=== PATIENT | female | born 1955 | race Two or more races ===

== ENCOUNTER 2020-01-02 11:52 | Outpatient (CLI) | payer BC, SELFPAY ==
--- NOTE | ~2020-01-02 | XR_ITS ---
XR shoulder LT min 2V DATE: 01/02/2020 12:35 INDICATION: Generalized left shoulder pain. Hand and finger pain. TECHNIQUE: 4 views COMPARISON: None FINDINGS: There is moderate diffuse osteopenia. No fracture, dislocation, periosteal reaction or bone destruction or abnormal soft tissue calcificati on. Normal alignment at the acromioclavicular and glenohumeral joints. IMPRESSION: Osteopenia Reviewed, dictated and finalized at location A. IMPRESSION: Osteopenia
--- NOTE | ~2020-01-02 | XR_ITS ---
XR hand LT min 3V DATE: 01/02/2020 12:35 INDICATION: Hand pain, finger pain. No injury. TECHNIQUE: 3 views COMPARISON: None FINDINGS: There is diffuse osteopenia. There is osteoarthritic change mainly involving all interphalangeal joints. Osteopenia. No fracture, dislocation, periosteal reaction or bone destruction. 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
== END 2020-01-02 11:53 | disposition home or self-care (01) ==
LOC: ANHIMG 12:03
PROVIDERS: PCP Emergency Medicine; Visit Provider Emergency Medicine
DX: M19.042 Primary osteoarthritis, left hand (principal); M85.812 Other specified disorders of bone density and structure, left shoulder
CPT/HCPCS: 73030; 73130

== ENCOUNTER 2020-03-19 10:12 | Outpatient (CLI) | payer BC, SELFPAY ==
--- NOTE | ~2020-03-19 | XR_ITS ---
EXAMINATION: XR chest 2V EXAM DATE: 03/19/2020 10:31 INDICATION: Cough for 2 days. TECHNIQUE: Frontal and lateral projections of the chest obtained and reviewed. There is no prior eduarda dy for comparison. FINDINGS: There are cholecystectomy clips. The lungs are clear. There are no pleural effusions. T he cardiomediastinal silhouette is within normal limits. There is no pneumothorax suspected. The colby ivette and soft tissues are unremarkable. IMPRESSION: No acute cardiopulmonary findings. Reviewed, dictated and finalized at location B. 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
== END 2020-03-19 10:13 | disposition home or self-care (01) ==
LOC: ANHIMG 10:16
PROVIDERS: PCP Emergency Medicine; Visit Provider Emergency Medicine
DX: R05 Cough (principal)
CPT/HCPCS: 71046

== ENCOUNTER 2020-09-27 07:25 | Outpatient (CLI) | payer BC, SELFPAY ==
--- NOTE | 2020-10-14 15:30 | WPDHOMESLEEP ---
Sleep Study - Home Unattended Date of Study: 09/27/20 Ordering Provider: Belkys Forbes MD Interpreting Provider: Belkys Forbes MD Home Sleep Study Type: Apnea Link Air Height: 1.57 m Weight: 62.142 kg Body Mass Index: 25.2 Neck Circumference (inches): 14.25 [place]: 6 Reason for Sleep Study Loud snoring, excessive daytime fatigue. Sleep History Ad Razo is a 65 year old female with a history of loud snoring and increased daytime fatigue. She has an extremely dry mouth in the morning. She does not awaken from sleep feeling short of breath and she does not have heartburn, belching or coughing that wakes her at night. She constantly snores and frequently this is loud enough that others complain about it. She rarely has trouble sleep with a cold. She does not wake up gasping for breath at night. She does not have breathing problems observed by others at night and she does not sweat excessively night. She does not notice her heart pounding or beating irregularly night. She occasionally falls asleep during the day, never falls asleep involuntarily or while driving. She does not have loss of muscle tone with strong emotion. She does not have daytime difficulties due to excessive sleepiness. She does not feel paralyzed on waking or falling asleep. She does not have vivid dreamlike scenes upon awakening or falling asleep. She does not feel afraid to go to sleep. She does not have nightmares, does not have any dream recall. She does not have racing thoughts. She denies feelings of sadness or depression. She does not have anxiety. She denies having muscular tension. She does not notice parts of her body jerking and she does not kick at night. She does not have crawling or aching feelings in her legs and does not have any kind of leg pain at night. She does not have morning jaw pain. She denies grinding her teeth at night. She is not bothered by pain during the day and is not awakened by pain at night. She does not wake up feeling stiff in the morning with sore achy muscles. She does not wake up with pain in the neck or spine. Normal bedtime is 9:30 p.m. taking 1/2 hour fall asleep, typically waking twice at night to drink water and urinate. On average, she stays awake for 20 minutes when she wakes at night. She wakes morning at 5:30 a.m.. Her weekend schedule is the same. She takes naps in the afternoon. A short nap 10 or 15 minutes may be refreshing. She feels good in the morning. Habits: Never smoked tobacco. Caffeine 1 cup of tea daily. No alcohol or recreational drugs. [facility] Past Medical History Medical History (Updated 10/14/20 @ 15:43 by Belkys Forbes MD) GERD (gastroesophageal reflux disease) History of diabetes mellitus Hypertension Obstructive sleep apnea (~09/2020) Osteoarthritis Osteopenia Social History Social History Smoking status: Never smoker Alcohol intake: never Substance use: never Medications Home Medications Medication Instructions Recorded Confirmed Type amlodipine 10 mg tablet 10 mg PO DAILY 06/20/20 History omeprazole 40 mg capsule,delayed 40 mg PO DAILY 06/20/20 History release simvastatin 10 mg tablet 10 mg PO DAILY 06/20/20 History Sleep Procedure This test was performed using 4 channel monitoring including respiratory effort channel, snoring channel, heart rate channel, and oxygen saturation channel. This study was scored using [facility] guidelines. Sleep Architecture Not applicable for home sleep test. Respiratory Analysis The recording time is 7 hours and 39 minutes. The evaluation time is 7 hours and 20 minutes. the apnea-hypopnea index is 60. She had 345 obstructive apneas, 99% of the total, 2 central apneas for 1% of the total. She had 91 hypopneas. There is no evidence of Wyatt-Farfan respirations. Oximetry Data Oxygen desaturation index is 48.4. Average saturation 95%. Yvon
[2020-10-14 15:57] VITALS: BMI 25.2
== END 2020-09-30 13:18 | disposition home or self-care (01) ==
LOC: ANHCSM 07:25
PROVIDERS: PCP Emergency Medicine; Visit Provider Internal Medicine Critical Care Medicine
DX: G47.30 Sleep apnea, unspecified (principal); G47.10 Hypersomnia, unspecified; G47.33 Obstructive sleep apnea (adult) (pediatric)
CPT/HCPCS: 95806

== ENCOUNTER 2020-11-15 08:43 | Outpatient (CLI) | payer MEDICARE, OTHER, SELFPAY ==
[2020-11-15 09:16] LABS: Hematocrit 35.3 % (37.0-47.0); Mean Corpuscular HGB Conc 31.2 g/dl (32-36); Mean Corpuscular Hemoglobin 24.2 pg (26-34); Mean Corpuscular Volume 77.8 fl (80-100); Mean Platelet Volume 10.5 fl (7.4-10.4); Platelet Count Result 262 k/mm3 (150-375); Red Blood Count 4.54 M/mm3 (4.2-5.4); Red Cell Distribution Width 15.6 % (11.5-14.5); White Blood Count 6.3 K/mm3 (4.5-10.0)
[2020-11-15 09:26] LABS: Cholesterol 154 mg/dL (0-200); HDL Direct 79 mg/dL; Triglycerides 82 mg/dL (<150)
[2020-11-15 09:37] LABS: LDL Cholesterol Direct 57 mg/dL
[2020-11-15 09:57] LABS: Thyroid Stimulating Hormone 0.947 uIU/mL (0.465-4.680)
[2020-11-15 11:21] LABS: Free T4 Free Thyroxine 1.21 ng/mL (0.78-2.19); Vitamin D 25 Hydroxy 79.1 ng/mL
[2020-11-15 11:58] LABS: Hemoglobin A1C 6.2 % (<5.7)
== END 2020-11-15 08:44 | disposition home or self-care (01) ==
PROVIDERS: PCP Emergency Medicine; Visit Provider Emergency Medicine
DX: R73.09 Other abnormal glucose (principal); E78.5 Hyperlipidemia, unspecified; I10 Essential (primary) hypertension; E55.9 Vitamin D deficiency, unspecified
CPT/HCPCS: 36415; 80061; 82306; 83036; 84439; 84443; 85027

== ENCOUNTER → 2021-12-25 14:44 | Outpatient (CLI) | payer MEDICARE, OTHER, SELFPAY ==
--- NOTE | ~2021-12-25 | MM_ITS ---
EXAMINATION: MM screening moose BI w jacob HISTORY: Screening mammogram TECHNIQUE: Craniocaudal and mediolateral oblique 3-D tomosynthesis images were obtained and synthetic 2-D images were generated. CAD analysis was submitted and interpreted. COMPARISON: No prior mammogram is available for comparison at this institution. BREAST PARENCHYMAL COMPOSITION: There are scattered areas of fibroglandular density. FINDINGS: There is no suspicious mass, calcification, or architectural distortion to suggest malignan cy in either breast. There has been no suspicious interval change. IMPRESSION: 1. No mammographic evidence of malignancy. 2. Recommend routine screening mammography in one year. BI-RADS Category 1: Negative Reviewed, dictated and finalized at location A.
--- NOTE | ~2021-12-25 | DEXA_ITS ---
Bone Density Report Name: FEI KO Age: 66 Sex: Female Ethnicity: White Date of : 1955 Indication: postmenopausal; screening for osteoporosis; Referring Provider: FABIO LOPEZ Study: Bone densitometry was performed. Exam Date: December 25, 2021 Accession number: [id number] Bone Density: Region BMD T-score Z-score Classification AP Spine (L1-L4) 0.819 -2.1 -0.2 Osteopenia Femoral Neck (Left) 0.652 -1.8 -0.2 Osteopenia Total Hip (Left) 0.700 -2.0 -0.7 Osteopenia Femoral Neck (Right) 0.658 -1.7 -0.1 Osteopenia Total Hip (Right) 0.708 -1.9 -0.6 Osteopenia Total Hip Mean 0.704 -2.0 -0.7 Osteopenia World Health Organization criteria for BMD impression classify patients as: Normal (T-score at or above -1.0), Osteopenia (T-score between -1.0 and -2.5), or Osteoporosis (T-score at or below -2.5). 10-year Fracture Risk(1): Major Osteoporotic Fracture 9.9% Hip Fracture 1.3% Reported Risk Factors: [place] (), Neck BMD=0.658, BMI=26.4 (1) FRAX(R) Version 3.08. Fracture probability calculated for an untreated patient. Fracture probability may be lower if the patient has received treatment. Clinical Information Provided by Patient: Has used the following medications: Vitamin D Patient maximum height was 60.0 Menopause Age: 50 Drinks caffeinated beverages Onset of menses at age 15 Number of children 2 Impression: The patient has low bone mass, based on the Total Spine T-score. The patient has an estimated ten-year risk of hip fracture of 1.3% and an estimated ten-year risk of major fracture of 9.9%, based on the WHO FRAX algorithm. Discussion: BONE DENSITY IS LOW AT ONE OR MORE SKELETAL SITES. This patient's lowest T-score is low at one or more skeletal sites. It meets the World Health Organization's (WHO) criteria for ?low bone mass? (T-score between -1.0 and -2.5). The patient's 10-year risk of fracture as calculated by FRAX is less than the threshold where pharmacological therapy is recommended by the National Osteoporosis Foundation (NOF). However, all treatment decisions require clinical judgment and consideration of individual patient factors, including patient preferences, comorbidities, previous drug use, risk factors not captured in the FRAX model (e.g., frailty, falls, vitamin D deficiency, increased bone turnover, interval significant decline in bone density) and possible under or overestimation of fracture risk by FRAX. The patient should follow a healthful lifestyle (good nutrition with adequate calcium and vitamin D, and appropriate weight-bearing exercise). Follow-Up: Consider repeating this study in 2 to 3 years to reassess this patient's status, or sooner if there is some new clinical indication. Reported by: [facility] on 12/25/2021 4:00:00 PM.
== END ==
PROVIDERS: PCP Emergency Medicine; Visit Provider Emergency Medicine
DX: Z12.31 Encounter for screening mammogram for malignant neoplasm of breast (principal); M81.0 Age-related osteoporosis without current pathological fracture; M85.88 Other specified disorders of bone density and structure, other site; M85.852 Other specified disorders of bone density and structure, left thigh; M85.851 Other specified disorders of bone density and structure, right thigh
CPT/HCPCS: 77063; 77067; 77080

== ENCOUNTER → 2023-03-16 14:28 | Outpatient (CLI) | payer MEDICARE, OTHER, SELFPAY ==
--- NOTE | ~2023-03-16 | MM_ITS ---
EXAMINATION: MM screening moose BI w jacob HISTORY: Screening mammogram TECHNIQUE: Craniocaudal and mediolateral oblique 3-D tomosynthesis images were obtained and synthetic 2-D images were generated. CAD analysis was submitted and interpreted. COMPARISON: 12/25/2021 bilateral screening mammogram BREAST PARENCHYMAL COMPOSITION: There are scattered areas of fibroglandular density. FINDINGS: There is no evidence of suspicious mass, calcification, or architectural distortion to sugg est malignancy in either breast. There has been no suspicious interval change. IMPRESSION: 1. No mammographic evidence of malignancy. 2. Recommend routine screening mammography in one year. BI-RADS Category 1: Negative Reviewed, dictated and finalized at location A. 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
== END ==
PROVIDERS: PCP Emergency Medicine; Visit Provider Emergency Medicine
DX: Z12.31 Encounter for screening mammogram for malignant neoplasm of breast (principal)
CPT/HCPCS: 77063; 77067